=== PATIENT | female | born 1970 | race Caucasian/White ===

== ENCOUNTER → 2017-02-08 | Outpatient (CLI) | payer MEDICAID | LOC: FIMAGING 09:25 | PROVIDERS: ATTEND Nurse Practitioner Family | DX: R76.11 Nonspecific reaction to tuberculin skin test without active tuberculosis (principal) ==

== ENCOUNTER 2018-03-21 21:49 | Emergency (ER) | payer MEDICAID ==
--- NOTE | 2018-03-21 21:55 | EDPHY ---
H & P Time Seen by Provider: 03/21/18 21:51 HPI/ROS: Chief Complaint: Med clearance, alcohol intoxication HPI: 47-year-old woman brought in by EMS and police for medical clearance. Patient was found a intoxicated. She is ambulating unassisted. She began getting combative with police. She required hobbling. Patient brought in for evaluation. She is awake and alert. Slurred speech. She denies falls or head injuries. Denies any fevers or chills. No cough. Admits to drinking alcohol. Denies any other complaints at this time. ROS: 10 systems were reviewed and were negative except those elements noted in the HPI. PMH: Denies Social History: Positive smoking, daily alcohol Family History: non-contributory Physical Exam: Gen: Awake, Alert, Airway Intact HEENT: Head: Atraumatic Eyes: PERRLA, EOMI Ears: No hemotympanum Nose: No epistaxis Mouth: Normal dentition, Airway patent Face: No deformity Neck: non-tender, no stepoff, Full ROM without pain Chest: non-tender, lungs CTA Heart: normal heart tones Abd: soft, non-tender, atraumatic Pelvis: non-tender, stable to AP and Lateral compression Back: atraumatic, no midline tenderness Ext: atramatic, full ROM Skin: no rash Neuro: CN II-XII intact, Strength 5/5 in all extremities, sensation intact in all extremities - Medical/Surgical History Hx Asthma: No Hx Chronic Respiratory Disease: No Hx Diabetes: No Hx Cardiac Disease: No Hx Renal Disease: No Hx Cirrhosis: No Hx Alcoholism: No Hx HIV/AIDS: No Hx Splenectomy or Spleen Trauma: No Other PMH: none - Social History Smoking Status: Current some day smoker Constitutional: Initial Vital Signs Temperature (C) 36.6 C 03/21/18 21:52 Heart Rate 100 03/21/18 21:52 Respiratory Rate 16 03/21/18 21:52 Blood Pressure 111/84 H 03/21/18 21:52 O2 Sat (%) 94 03/21/18 21:52 O2 Delivery Mode Room Air Allergies/Adverse Reactions: latex Allergy (Mild, Verified 03/21/18 21:52) Itching Home Medications: Medication Instructions Recorded NK [No Known Home Meds] 03/21/18 Medical Decision Making ED Course/Re-evaluation: 47-year-old woman brought in for medical clearance. She is intoxicated. There is no findings on physical exam with the exception of her intoxication. She is atraumatic. She is awake alert and answering questions. She is ambulating unassisted. She is medically clear for snf. Departure - Departure Disposition: Law Enforcement/Court/[facility] Clinical Impression: Alcoholic intoxication Condition: Good Instructions: Alcohol Intoxication (ED) Additional Instructions: MEDICALLY CLEAR FOR CUSTODIAL Referrals: NONE *PRIMARY CARE P,. [Primary Care Provider] - As per Instructions
[2018-03-21 21:56] VITALS: BP 111/84
== END 2018-03-21 22:00 ==
LOC: EDUNIT#
DX: F10.920 Alcohol use, unspecified with intoxication, uncomplicated (principal)

== ENCOUNTER 2018-03-28 00:43 | Emergency (ER) | payer MEDICAID, OTHER ==
[2018-03-28] MEDS ORDERED: NS 1,000 ML IV ONE (00:50)
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
[2018-03-28 01:11] LABS: PLATELET COUNT 338 10^3/uL (150-400)
[2018-03-28 05:44] VITALS: BP 98/58
== END 2018-03-28 05:58 | disposition home or self-care (01) ==
LOC: EDUNIT#
DX: F10.920 Alcohol use, unspecified with intoxication, uncomplicated (principal); E86.9 Volume depletion, unspecified
CPT/HCPCS: G0480

== ENCOUNTER 2018-06-13 04:28 | Emergency (ER) | payer MEDICAID ==
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
[2018-06-13 09:47] VITALS: BP 115/61
== END 2018-06-13 09:56 | disposition home or self-care (01) ==
LOC: EDUNIT#
DX: F10.920 Alcohol use, unspecified with intoxication, uncomplicated (principal)